=== PATIENT | female | born 1975 | race Two or more races ===

== ENCOUNTER 2017-04-10 01:29 | Emergency (ER) | payer OTHER ==
--- NOTE | 2017-04-10 02:21 | PDOC ---
History of Present Illness - General History Source: Patient Exam Limitations: No Limitations - History of Present Illness Initial Comments: 04/10/17 03:41 Patient is a 41 year old female with a significant past medical history of HTN, Diabetes, bipolar disorder, who presents to the ED with complaints of intense diffuse abdominal pain that began 4 days ago. Patient reports experiencing chronic abdominal pain for 1 year but the abdominal pain increased in intensity 4 days ago. Patient reports experiencing lower back pain secondary to abdominal pain. She states lower back pain has been chronic for 1 year but states the pain intensity increased 4 days ago with abdominal pain. Patient does not rate pain but states she is unable to walk up stairs or sit up secondary to abdominal pain. She reports taking Advil x6 yesterday for lower back pain. She states she takes at least Tylenol x2 everyday for her pain. Denies dysuria, hematuria. Denies fevers chills. Denies any other symptoms. Allergies: None Social history: No smoking. No alcohol. No illicit drugs. Surgical history: None PMD: None <Rivas Rossi - Last Filed: 04/10/17 03:41> <Matilde Mueller - Last Filed: 04/13/17 08:03> - General Chief Complaint: Pain, Acute Stated Complaint: PAIN ABD/BACK Time Seen by Provider: 04/10/17 02:21 Past History <Rivas Rossi - Last Filed: 04/10/17 03:41> - Past Medical History HTN: Yes - Suicide/Smoking/Psychosocial Hx Smoking Status: Yes Smoking History: Current every day smoker Have you smoked in the past 12 months: Yes Number of Cigarettes Smoked Daily: 20 'Breaking Loose' booklet given: 05/26/13 Hx Alcohol Use: No Drug/Substance Use Hx: No Substance Use Type: None Hx Substance Use Treatment: No <Matilde Mueller - Last Filed: 04/13/17 08:03> - Past Medical History Allergies/Adverse Reactions: Allergies Allergy/AdvReac Type Severity Reaction Status Date / Time No Known Allergies Allergy Verified 04/10/17 02:24 Home Medications: Ambulatory Orders Amlodipine Besylate [Norvasc -] 5 mg PO DAILY 05/23/13 Metformin HCl [Glucophage -] 500 mg PO DAILY 05/23/13 Review of Systems - Review of Systems Able to Perform ROS?: Yes Comments:: 04/10/17 03:41 GENERAL/CONSTITUTIONAL: No fever or chills. No weakness. HEAD, EYES, EARS, NOSE AND THROAT: No change in vision. No ear pain or discharge. No sore throat. GASTROINTESTINAL: +Nausea. +Vomiting. +Diarrhea. No constipation. GENITOURINARY: No dysuria, frequency, or change in urination. CARDIOVASCULAR: +Chest pain. +SOB . RESPIRATORY: No cough, wheezing, or hemoptysis. MUSCULOSKELETAL: +Abdominal pain. No joint or muscle swelling. No neck or back pain. SKIN: No rash NEUROLOGIC: No headache, vertigo, loss of consciousness, or change in strength/ sensation. ENDOCRINE: No increased thirst. No abnormal weight change. HEMATOLOGIC/LYMPHATIC: No anemia, easy bleeding, or history of blood clots. ALLERGIC/IMMUNOLOGIC: No hives or skin allergy. All Other Systems: Reviewed and Negative <Rivas Rossi - Last Filed: 04/10/17 03:41> *Physical Exam - Vital Signs Last Vital Signs Temp Pulse Resp BP Pulse Ox 98.8 F 101 H 22 141/98 100 04/10/17 02:20 04/10/17 02:20 04/10/17 02:20 04/10/17 02:20 04/10/17 02:20 - Physical Exam Comments: 04/10/17 03:42 GENERAL: +Morbidly obese. +appears uncomfortable. Awake, alert, and fully oriented, in no acute distress HEAD: No signs of trauma EYES: PERRLA, EOMI, sclera anicteric, conjunctiva clear ENT: Auricles normal inspection, hearing grossly normal, nares patent, oropharynx clear without exudates. Moist mucosa NECK: Normal ROM, supple, no lymphadenopathy, JVD, or masses LUNGS: Breath sounds equal, clear to auscultation bilaterally. No wheezes, and no crackles HEART: Regular rate and rhythm, normal S1 and S2, no murmurs, rubs or gallops MUSCULOSKELETAL: +Left lateral lower back soft tissue tenderness. ABDOMEN: Soft, nontender, normoactive bowel sounds. No guarding, no rebound. No masses EXTREMITIES: Normal range of motion, no edema. No clubbing or cyanosis. No cords, erythema, or tenderness NEUROLOGICAL: Cranial nerves II through XII grossly intact. Normal speech, normal gait SKIN: Warm, Dry, normal turgor, no rashes or lesions noted. <Rivas Rossi - Last Filed: 04/10/17 03:41> ED Treatment Course - LABORATORY CBC & Chemistry Diagram: 04/10/17 03:05 04/10/17 03:05 - Medications Given in the ED: ED Medications Discontinued Medications Generic Name Dose Route Start Last Admin Trade Name Laurence PRN Reason Stop Dose Admin Morphine Sulfate 4 mg 04/10/17 03:00 04/10/17 03:14 Morphine Injection - IVPUSH 04/10/17 03:01 4 mg ONCE ONE Administration <Rivas Rossi - Last Filed: 04/10/17 03:41> - LABORATORY CBC & Chemistry Diagram: 04/10/17 03:05 04/10/17 03:05 <Matilde Mueller - Last Filed: 04/13/17 08:03> Medical Decision Making - Medical Decision Making No acute findings on UA, CT. Patient noted to have a leukocytosis, no obvious source. Patient is well-appearing, nontoxic. Stable for DC home. <Matilde Mueller - Last Filed: 04/13/17 08:03> *DC/Admit/Observation/Transfer - Attestations Scribe Attestion: 04/10/17 03:42 Documentation prepared by Rivas Rossi, acting as ophthalmic medical technologist for Matilde Mueller MD. <Rivas Rossi - Last Filed: 04/10/17 03:41> - Discharge Dispostion Admit: No <Matilde Mueller - Last Filed: 04/13/17 08:03> Diagnosis at time of Disposition: Abdominal pain Qualifiers: Abdominal location: unspecified location Qualified Code(s): R10.9 - Unspecified abdominal pain - Discharge Dispostion Disposition: HOME Condition at time of disposition: Stable - Referrals Referrals: STAFF,NOT ON [Non Staff, Medical] - - Patient Instructions Printed Discharge Instructions: DI for Abdominal Pain-Adult
[2017-04-10 02:24] VITALS: BP 141/98; PULSE 101; TEMP 98.8; BMI 39.4
[2017-04-10] MEDS ORDERED: morphine CARPU-JECT 4 MG/1 ML DISP.SYRIN IVPUSH ONE ×2 (03:00→04:18)
[2017-04-10] MEDS ORDERED: morphine CARPU-JECT 4 MG/1 ML DISP.SYRIN ONE (03:07)
[2017-04-10 03:50] LABS: INR 1.08 (0.82-1.09); PROTHROMBIN TIME (PATIENT) 11.9 SEC (9.98-11.88)
[2017-04-10 03:59] LABS: BASOPHIL 0.6 % (0-2.0); EOSINOPHIL 2.4 % (0-4.5); MCH 29.4 pg (25.7-33.7); MEAN PLT VOLUME 10.3 fl (7.5-11.1); NEUTROPHILS 62.2 % (42.8-82.8); PLATELET COUNT 245 K/MM3 (134-434); RDW 13.7 % (11.6-15.6); WHITE BLOOD COUNT 15.5 K/mm3 (4.0-10.0)
[2017-04-10 04:00] LABS: ALBUMIN 3.8 g/dl (3.4-5.0); ALK PHOS 78 U/L (45-117); ANION GAP 5 (8-16); BILIRUBIN,TOTAL 0.4 mg/dL (0.2-1.0); CALCIUM 8.8 mg/dL (8.5-10.1); CO2 31 mmol/L (21-32); CREATININE 0.7 mg/dL (0.55-1.02); GLUCOSE,RANDOM 97 mg/dL (74-106); SGOT/AST 19 U/L (15-37); SGPT/ALT 38 U/L (12-78); TOT PROT 7.5 g/dl (6.4-8.2)
[2017-04-10 04:15] LABS: URINE MARIJUANA THC NEGATIVE ng/ml (CUTOFF=50)
[2017-04-10] MEDS ORDERED: SODIUM CHLORIDE 1,000 ML IV STA (04:18)
[2017-04-10 04:25] LABS: URINE APPEARANCE CLOUDY; URINE BILIRUBIN NEGATIVE (NEGATIVE); URINE BLOOD NEGATIVE (NEGATIVE); URINE COLOR YELLOW; URINE GLUCOSE (UA) NEGATIVE (NEGATIVE); URINE KETONE NEGATIVE (NEGATIVE); URINE NITRITE NEGATIVE (NEGATIVE); URINE PROTEIN NEGATIVE (NEGATIVE); URINE UROBILINOGEN NEGATIVE mg/dL (0.2-1.0)
[2017-04-10 04:27] LABS: URINE LEUK ESTERASE 3+ (NEGATIVE)
[2017-04-10 04:29] LABS: URINE BACTERIA RARE /hpf (NONE SEEN); URINE MUCUS MODERATE; URINE RBC 2 /hpf (0-3); URINE WBC 4 /hpf (3-5)
[2017-04-10] MEDS ORDERED: morphine CARPU-JECT 2 MG/1 ML DISP.SYRIN ONE (04:36)
== END 2017-04-10 07:04 | disposition home or self-care (01) ==
LOC: JER 01:29
PROC: 3E033NZ Introduction of Analgesics, Hypnotics, Sedatives into Peripheral Vein, Percutaneous Approach (ICD-10-PCS; principal; 2017-04-10)
DX: I10 Essential (primary) hypertension (principal); E11.9 Type 2 diabetes mellitus without complications; F31.9 Bipolar disorder, unspecified; F17.210 Nicotine dependence, cigarettes, uncomplicated; Z79.84 Long term (current) use of oral hypoglycemic drugs
CPT/HCPCS: 36415; 74177-TC; 80053; 80307; 81003; 81015; 83690; 84703; 85025; 85610; 96374; 99283-25

== ENCOUNTER 2022-06-14 01:26 | Observation (INO) | payer OTHER ==
[2022-06-14 02:02] LABS: HEMOGLOBIN 12.9 GM/dL (10.7-15.3); MCH 28.1 pg (25.7-33.7); MCHC 33.1 g/dl (32.0-36.0); MEAN CELL VOLUME 84.9 fl (80-96); MEAN PLT VOLUME 9.3 fl (7.5-11.1); PLATELET COUNT 238 10^3/uL (134-434); RBC 4.59 M/mm3 (3.60-5.2); RDW 14.6 % (11.6-15.6); WHITE BLOOD COUNT 7.2 K/mm3 (4.0-10.0)
[2022-06-14 02:13] LABS: INR 1.25 (0.83-1.09); PROTHROMBIN TIME (PATIENT) 14.4 SEC (9.7-13.0)
[2022-06-14] MEDS ORDERED: ASPIRIN 81 MG CHEWABLE TABLETS PO ONE (02:14)
[2022-06-14 02:15] LABS: ACTIVATED PTT 35.2 SECONDS (25.2-36.5)
[2022-06-14 02:18] LABS: CALCIUM 8.6 mg/dL (8.5-10.1)
[2022-06-14 02:19] LABS: ALBUMIN 3.5 g/dl (3.4-5.0); BLOOD UREA NITROGEN 8.3 mg/dL (7-18)
[2022-06-14 02:22] LABS: CREATININE 0.8 mg/dL (0.55-1.3)
[2022-06-14 02:24] LABS: BILIRUBIN,TOTAL 0.4 mg/dL (0.2-1); TOT PROT 7.2 g/dl (6.4-8.2)
[2022-06-14] MEDS ORDERED: ACETAMINOPHEN 1000 MG/100 ML BAG IVPB ONE (02:46)
[2022-06-14] MEDS ORDERED: ASPIRIN 81 MG CHEWABLE TABLETS ONE (02:47)
[2022-06-14] MEDS ORDERED: ACETAMINOPHEN INJECTION 100 ML IVPB ONE ×3 (02:47→16:08)
[2022-06-14 05:57] LABS: HCG,QUALITATIVE URINE Negative
[2022-06-14 06:26] LABS: EPI CELLS 36 /uL (0-25.1); HYALINE CASTS 1 /uL (0-3.1); PH,URINE 7.5 (5.0-8.0); URINE APPEARANCE CLEAR; URINE BACTERIA 618 /uL (0-1359); URINE BILIRUBIN NEGATIVE (NEGATIVE); URINE COLOR YELLOW; URINE GLUCOSE (UA) NEGATIVE (NEGATIVE); URINE KETONE NEGATIVE (NEGATIVE); URINE LEUK ESTERASE NEGATIVE (NEGATIVE); URINE NITRITE NEGATIVE (NEGATIVE); URINE PROTEIN 1+ (NEGATIVE); URINE RBC 41 /uL (0-23.9); URINE WBC 16 /uL (0-25.8)
[2022-06-14] MEDS ORDERED: guaiFENesin/D-METHORPHAN HB 10 ML UNIT-DOSE CUPS PO PRN (08:05)
[2022-06-14] MEDS ORDERED: LACTATED RINGERS SOLUTION 1,000 ML/1,000 ML INFUS.BAG IV SCH (08:15)
[2022-06-14] MEDS ORDERED: OSELTAMIVIR PHOSPHATE 75 MG CAPSULE ONE ×2 (09:45→22:30)
[2022-06-14] MEDS ORDERED: ENOXAPARIN NA (PORCINE) 40 MG/0.4 ML DISP.SYRIN SQ ONE ×2 (09:45→22:31)
[2022-06-14] MEDS ORDERED: ASPIRIN COATED 81 MG TABLET.EC PO SCH (10:00)
[2022-06-14] MEDS: ACETAMINOPHEN 1000 MG/100 ML BAG IVPB PRN ×2 (10:11→16:08)
[2022-06-14] MEDS: LACTATED RINGERS SOLUTION 1,000 ML/1,000 ML INFUS.BAG IV SCH (10:11)
[2022-06-14] MEDS: OSELTAMIVIR PHOSPHATE 75 MG CAPSULE PO SCH ×2 (10:12→22:36)
[2022-06-14] MEDS: ENOXAPARIN NA (PORCINE) 40 MG/0.4 ML DISP.SYRIN SQ SCH ×2 (10:12→22:35)
[2022-06-14] MEDS: BUDESONIDE/FORMETEROL FUMARATE 160/4.5 mcg INHALER IH SCH ×2 (10:50→22:35)
[2022-06-14 13:19] LABS: HEMATOCRIT 40.3 % (32.4-45.2); HEMOGLOBIN 13.2 GM/dL (10.7-15.3); MCH 27.8 pg (25.7-33.7); MCHC 32.8 g/dl (32.0-36.0); MEAN CELL VOLUME 84.8 fl (80-96); PLATELET COUNT 231 10^3/uL (134-434); RBC 4.75 M/mm3 (3.60-5.2); RDW 14.7 % (11.6-15.6); WHITE BLOOD COUNT 4.7 K/mm3 (4.0-10.0)
[2022-06-14 13:47] LABS: BLOOD UREA NITROGEN 8.9 mg/dL (7-18); MAGNESIUM 2.1 mg/dL (1.8-2.4)
[2022-06-14 13:51] LABS: PHOSPHOROUS 3.9 mg/dL (2.5-4.9)
[2022-06-14 14:15] LABS: CREATININE 0.7 mg/dL (0.55-1.3)
[2022-06-14] MEDS ORDERED: guaiFENesin/D-METHORPHAN HB 10 ML UNIT-DOSE CUPS ONE (16:07)
[2022-06-14] MEDS ORDERED: IBUPROFEN 600 MG TABLET (FP) PO ONE ×2 (21:00→21:10)
[2022-06-15] MEDS ORDERED: ATORVASTATIN CA 80 MG TABLET (FP) PO ONE (09:06)
[2022-06-15] MEDS: LACTATED RINGERS SOLUTION 1,000 ML/1,000 ML INFUS.BAG IV SCH (09:33)
[2022-06-15] MEDS: BUDESONIDE/FORMETEROL FUMARATE 160/4.5 mcg INHALER IH SCH (09:33)
[2022-06-15 09:42] LABS: BASO % 0.9 % (0-2.0); LYMPH % 36.7 % (8-40); MCH 27.7 pg (25.7-33.7); MCHC 32.4 g/dl (32.0-36.0); MEAN CELL VOLUME 85.3 fl (80-96); MEAN PLT VOLUME 9.7 fl (7.5-11.1); MONO % 11.5 % (3.8-10.2); NEUT % 42.9 % (42.8-82.8); PLATELET COUNT 224 10^3/uL (134-434); RBC 4.68 M/mm3 (3.60-5.2); RDW 14.6 % (11.6-15.6); WHITE BLOOD COUNT 5.4 K/mm3 (4.0-10.0)
[2022-06-15 10:46] LABS: ALBUMIN 3.2 g/dl (3.4-5.0); BLOOD UREA NITROGEN 11.1 mg/dL (7-18); CALCIUM 8.8 mg/dL (8.5-10.1)
[2022-06-15 10:47] LABS: PHOSPHOROUS 4.2 mg/dL (2.5-4.9)
[2022-06-15 10:48] LABS: BILIRUBIN,TOTAL 0.2 mg/dL (0.2-1); CREATININE 0.7 mg/dL (0.55-1.3); TOT PROT 6.6 g/dl (6.4-8.2)
[2022-06-15] MEDS ORDERED: OSELTAMIVIR PHOSPHATE 75 MG CAPSULE ONE (13:39)
[2022-06-15] MEDS ORDERED: ENOXAPARIN NA (PORCINE) 40 MG/0.4 ML DISP.SYRIN SQ ONE (13:39)
[2022-06-15] MEDS ORDERED: ATORVASTATIN CA 80 MG TABLET (FP) ONE (13:39)
[2022-06-15] MEDS: OSELTAMIVIR PHOSPHATE 75 MG CAPSULE PO SCH (13:43)
[2022-06-15] MEDS: ENOXAPARIN NA (PORCINE) 40 MG/0.4 ML DISP.SYRIN SQ SCH (13:43)
[2022-06-15 14:02] VITALS: BP 153/87; PULSE 66; RESP 18; TEMP 97.6; BMI 50.8
== END 2022-06-15 14:48 | disposition home or self-care (01) ==
LOC: JER 01:26 → UNDOADMOB 01:31 → JERBED 01:31 → INTOOBSV 01:31 → JERBED 07:44
PROVIDERS: ADMIT Internal Medicine
PROC: 3E033NZ Introduction of Analgesics, Hypnotics, Sedatives into Peripheral Vein, Percutaneous Approach (ICD-10-PCS; principal; 2022-06-14)
PROC: 3E023GC Introduction of Other Therapeutic Substance into Muscle, Percutaneous Approach (ICD-10-PCS; 2022-06-14)
PROC: 3E0337Z Introduction of Electrolytic and Water Balance Substance into Peripheral Vein, Percutaneous Approach (ICD-10-PCS; 2022-06-14)
DX: J09.X2 Influenza due to identified novel influenza A virus with other respiratory manifestations (principal); I25.10 Atherosclerotic heart disease of native coronary artery without angina pectoris; R73.03 Prediabetes; G45.9 Transient cerebral ischemic attack, unspecified; E66.01 Morbid (severe) obesity due to excess calories; Z68.43 Body mass index [BMI] 50.0-59.9, adult; I10 Essential (primary) hypertension; R07.81 Pleurodynia; R06.02 Shortness of breath; R51.9 Headache, unspecified; F17.210 Nicotine dependence, cigarettes, uncomplicated; Z29.8 Encounter for other specified prophylactic measures
CPT/HCPCS: 0241U-QW; 36415; 70450-TC; 70496-TC; 70498-TC; 70551-TC; 71045-TC-FY; 80048; 80053; 80061; 81003; 83036; 83735; 84100; 84484; 84703; 85025; 85027; 85610; 85730; 93005; 93010; 96361; 96372; 96374; 96376; 99285-25; C9803-CS; G0378; U0003; U0005

== ENCOUNTER 2023-03-10 00:07 | Emergency (ER) | payer OTHER ==
[2023-03-10 00:15] VITALS: BMI 42.2
[2023-03-10] MEDS ORDERED: ACETAMINOPHEN 325 MG TABLET (FP) ONE (01:37)
[2023-03-10 02:07] VITALS: RESP 18
[2023-03-10 02:25] LABS: THROAT:GRP A STREP NOT DETECTED (NOTDETECTED)
[2023-03-10] MEDS ORDERED: ALBUTEROL SO4 0.083% IH SOL 2.5 MG/3 ML VIAL.NEB. NEB ONE (02:47)
[2023-03-10] MEDS ORDERED: ACETAMINOPHEN 500 MG TABLET (FP) PO ONE (02:47)
[2023-03-10] MEDS ORDERED: ALBUTEROL SO4 2.5/IPRATROPIUM 0.5 INH SOL 3 ML VIAL.NEB. NEB ONE ×2 (02:48→03:13)
[2023-03-10 03:17] VITALS: BP 149/99; TEMP 100
[2023-03-10 03:39] VITALS: PULSE 92
== END 2023-03-10 03:45 | disposition home or self-care (01) ==
LOC: JER 00:07
PROC: 3E0F7GC Introduction of Other Therapeutic Substance into Respiratory Tract, Via Natural or Artificial Opening (ICD-10-PCS; principal; 2023-03-10)
DX: R50.9 Fever, unspecified (principal); R06.02 Shortness of breath; R42 Dizziness and giddiness; J06.9 Acute upper respiratory infection, unspecified; Z20.822 Contact with and (suspected) exposure to COVID-19
CPT/HCPCS: 0241U-QW; 71046-TC-FY; 87070; 87651; 93005; 93010; 94640; 99285-25